=== PATIENT | male | born 1965 | race Caucasian/White ===

== ENCOUNTER 2020-05-07 02:24 | Inpatient (IN) ==
[2020-05-07] MEDS ORDERED: Naloxone 0.4 MG/ML INJ IVP PRN (04:30)
[2020-05-07] MEDS: Nitroglycerin 0.4 MG TAB.SUBL SL PRN ×3 (04:35→04:47)
[2020-05-07] MEDS ORDERED: *HR* Heparin 5,000 UNIT/ML VIAL IVP PRN ×2 (04:48)
[2020-05-07] MEDS ORDERED: *HR* Heparin 5,000 UNIT/ML VIAL IVP ONE (04:48)
[2020-05-07] MEDS ORDERED: Ondansetron 4 MG/2 ML VIAL IVP PRN (04:49)
[2020-05-07] MEDS: Morphine Sulfate 2 MG/ML SYRINGE IVP PRN ×6 (04:58→21:00)
[2020-05-07] MEDS: Heparin 25,000 UNIT/250 ML D5W 25,000 UNIT/250 ML IV.SOLN IVC SCH (05:08)
[2020-05-07 07:46] LABS: Hematocrit 43.9 % (37.5-50.1); Hemoglobin 14.2 g/dL (12.9-16.9); Mean Corpuscular HGB Conc 32.3 g/dL (31.6-35.5); Mean Corpuscular Hemoglobin 30.3 pg (28.0-33.3); Mean Corpuscular Volume 93.6 fL (83.0-100.0); Mean Platelet Volume 11.7 fL (9.4-12.4); Platelet Count 342 K/mcL (140-400); Red Blood Count 4.69 M/mcL (4.19-5.50); White Blood Count 10.6 K/mcL (4.3-11.1)
[2020-05-07 07:50] LABS: INR 1.1; Prothrombin Time 12.7 Seconds (9.4-12.1)
[2020-05-07 08:13] LABS: Alanine Aminotransferase 29 Units/L (7-52); Albumin 3.9 g/dL (3.5-5.7); Albumin/Globulin Ratio 1.2 (1.1-2.2); Alkaline Phosphatase 75 Units/L (34-104); Aspartate Amino Transferase 21 Units/L (13-39); BUN/Creatinine Ratio 15 (6-26); Bilirubin,Total 0.3 mg/dL (0.3-1.0); Blood Urea Nitrogen 21 mg/dL (6-20); Calcium 8.6 mg/dL (8.6-10.3); Carbon Dioxide 25 mEq/L (23-29); Chloride 103 mEq/L (98-107); Globulin 3.3 g/dL (2.4-3.5); Glucose 108 mg/dL (70-105); Osmolality,Calculated 290 (280-300); Phosphorous 4.5 mg/dL (2.7-4.5); Potassium 4.3 mEq/L (3.5-5.1); Sodium 138 mEq/L (136-145); Total Protein 7.2 g/dL (6.4-8.9); Troponin I < 0.03 ng/mL (< 0.04); eGFR For African Americans > 60 (> 60); eGFR For Non-African Americans 51 (> 60)
[2020-05-07] MEDS ORDERED: Perflutren Lipid Microsphere 1.3 ML in 0.9 % Sodium Chloride 8.7 ML IVP PRN (08:59)
[2020-05-07] MEDS ORDERED: Regadenoson 0.4 MG/5 ML SYRINGE IVP ONE (09:15)
[2020-05-07] MEDS: Aspirin 81 MG TAB.CHEW PO SCH (10:06)
[2020-05-07] MEDS ORDERED: *HR* OxyCODONE Immed Rel 5 MG TABLET PO PRN (10:33)
[2020-05-07] MEDS: *HR* HYDROcodone/Acet 5/325 mg TABLET PO PRN (13:20)
[2020-05-07] MEDS: carvediloL 6.25 MG TABLET PO SCH (16:51)
[2020-05-08] MEDS: Morphine Sulfate 2 MG/ML SYRINGE IVP PRN ×8 (00:24→23:38)
[2020-05-08 06:13] LABS: Basophils # 0.1 K/mcL (0.0-0.2); Basophils % 0.5 %; Eosinophils # 0.5 K/mcL (0.0-0.6); Eosinophils % 5.2 %; Hematocrit 43.9 % (37.5-50.1); Hemoglobin 13.8 g/dL (12.9-16.9); Immature Granulocytes % 0.4 % (0-4); Lymphocytes # 2.8 K/mcL (0.6-4.6); Lymphocytes % 29.4 %; Mean Corpuscular HGB Conc 31.4 g/dL (31.6-35.5); Mean Corpuscular Volume 95.4 fL (83.0-100.0); Mean Platelet Volume 11.3 fL (9.4-12.4); Monocytes # 0.8 K/mcL (0.0-1.3); Monocytes % 8.3 %; Neutrophils # 5.3 K/mcL (1.6-8.9); Nucleated Red Blood Cells 0.2 /100 WBC (0); Platelet Count 305 K/mcL (140-400); Segmented Neutrophils % 56.2 %; White Blood Count 9.4 K/mcL (4.3-11.1)
[2020-05-08 07:01] LABS: Calcium 8.4 mg/dL (8.6-10.3); Potassium 4.3 mEq/L (3.5-5.1)
[2020-05-08] MEDS: Isosorbide MONOnitrate (24 HR) 60 MG TAB.ER.24H PO SCH (07:29)
[2020-05-08] MEDS: Aspirin 81 MG TAB.CHEW PO SCH (07:30)
[2020-05-08] MEDS: carvediloL 6.25 MG TABLET PO SCH ×2 (07:30→16:54)
[2020-05-08] MEDS: lisinopriL 5 MG TABLET PO SCH (07:30)
[2020-05-08] MEDS: Heparin 25,000 UNIT/250 ML D5W 25,000 UNIT/250 ML IV.SOLN IVC SCH (07:32)
[2020-05-08] MEDS ORDERED: 0.9 % Sodium Chloride 1,000 ML ONE (11:09)
[2020-05-08] MEDS: *HR* Acetylcysteine 20% 600 MG/3 ML ORAL SYRINGE PO SCH ×2 (11:14→20:42)
[2020-05-08] MEDS ORDERED: 0.9 % Sodium Chloride 1,000 ML IVC SCH (11:15)
[2020-05-08] MEDS: *HR* Heparin 5,000 UNIT/ML VIAL SQ SCH (16:55)
[2020-05-09] MEDS: Morphine Sulfate 2 MG/ML SYRINGE IVP PRN ×5 (02:30→20:44)
[2020-05-09 04:37] LABS: BUN/Creatinine Ratio 13 (6-26); Blood Urea Nitrogen 18 mg/dL (6-20); Calcium 8.3 mg/dL (8.6-10.3); Carbon Dioxide 25 mEq/L (23-29); Chloride 104 mEq/L (98-107); Glucose 96 mg/dL (70-105); Osmolality,Calculated 284 (280-300); Potassium 4.3 mEq/L (3.5-5.1); Sodium 136 mEq/L (136-145); eGFR For African Americans > 60 (> 60); eGFR For Non-African Americans 53 (> 60)
[2020-05-09] MEDS: *HR* Heparin 5,000 UNIT/ML VIAL SQ SCH ×2 (05:20→16:20)
[2020-05-09] MEDS: Isosorbide MONOnitrate (24 HR) 60 MG TAB.ER.24H PO SCH (07:55)
[2020-05-09] MEDS: Aspirin 81 MG TAB.CHEW PO SCH (07:55)
[2020-05-09] MEDS: lisinopriL 5 MG TABLET PO SCH (07:56)
[2020-05-09] MEDS: carvediloL 6.25 MG TABLET PO SCH ×2 (07:59→16:30)
[2020-05-09] MEDS: *HR* Acetylcysteine 20% 600 MG/3 ML ORAL SYRINGE PO SCH ×2 (10:48→20:20)
[2020-05-09] MEDS ORDERED: 0.9 % Sodium Chloride 2,000 ML ONE (12:45)
[2020-05-09] MEDS ORDERED: Heparin 1,000 UNITS/500 mL 500 ML ONE (12:45)
[2020-05-09] MEDS ORDERED: ISOVUE-370 200 ML INFUS..BTL ONE (12:46)
[2020-05-09] MEDS ORDERED: Nitroglycerin 1,000 MCG/10 ML VIAL IV ONE (12:46)
[2020-05-09] MEDS ORDERED: *HR* Heparin 10,000 UNIT/10 ML VIAL ONE (12:46)
[2020-05-09] MEDS ORDERED: *HR* Midazolam HCl 2 MG/2 ML VIAL ONE (13:14)
[2020-05-09] MEDS ORDERED: *HR* FentaNYL (PF) 100 MCG/2 ML VIAL ONE (13:23)
[2020-05-09] MEDS ORDERED: Acetaminophen 325 MG TABLET PO PRN (13:54)
[2020-05-09] MEDS: *HR* HYDROcodone/Acet 5/325 mg TABLET PO PRN (14:23)
[2020-05-10] MEDS: Morphine Sulfate 2 MG/ML SYRINGE IVP PRN ×2 (00:27→06:40)
[2020-05-10 04:48] LABS: Basophils % 0.3 %; Eosinophils # 0.2 K/mcL (0.0-0.6); Eosinophils % 3.4 %; Hematocrit 41.7 % (37.5-50.1); Hemoglobin 12.8 g/dL (12.9-16.9); Immature Granulocytes % 0.4 % (0-4); Lymphocytes # 0.8 K/mcL (0.6-4.6); Lymphocytes % 11.8 %; Mean Corpuscular HGB Conc 30.7 g/dL (31.6-35.5); Mean Corpuscular Hemoglobin 29.3 pg (28.0-33.3); Mean Corpuscular Volume 95.4 fL (83.0-100.0); Mean Platelet Volume 11.3 fL (9.4-12.4); Monocytes # 0.7 K/mcL (0.0-1.3); Monocytes % 10.6 %; Platelet Count 282 K/mcL (140-400); Red Blood Count 4.37 M/mcL (4.19-5.50); Red Cell Distribution Width 13.5 % (11.5-14.5); Segmented Neutrophils % 73.5 %; White Blood Count 6.8 K/mcL (4.3-11.1)
[2020-05-10 05:03] LABS: BUN/Creatinine Ratio 12 (6-26); Blood Urea Nitrogen 16 mg/dL (6-20); Calcium 8.1 mg/dL (8.6-10.3); Carbon Dioxide 28 mEq/L (23-29); Chloride 102 mEq/L (98-107); Glucose 103 mg/dL (70-105); Osmolality,Calculated 285 (280-300); Potassium 4.1 mEq/L (3.5-5.1); Sodium 137 mEq/L (136-145); eGFR For African Americans > 60 (> 60); eGFR For Non-African Americans 56 (> 60)
[2020-05-10] MEDS: *HR* Heparin 5,000 UNIT/ML VIAL SQ SCH (06:04)
[2020-05-10] MEDS: Isosorbide MONOnitrate (24 HR) 60 MG TAB.ER.24H PO SCH (08:10)
[2020-05-10] MEDS: Aspirin 81 MG TAB.CHEW PO SCH (08:11)
[2020-05-10] MEDS: carvediloL 6.25 MG TABLET PO SCH (08:11)
[2020-05-10] MEDS: lisinopriL 5 MG TABLET PO SCH (08:12)
[2020-05-10] MEDS: *HR* Acetylcysteine 20% 600 MG/3 ML ORAL SYRINGE PO SCH (08:13)
[2020-05-10] MEDS: *HR* HYDROcodone/Acet 5/325 mg TABLET PO PRN (10:51)
[2020-05-10 11:54] VITALS: BP 146/76
== END 2020-05-10 12:17 | disposition home or self-care (01) | DRG 175 ==
LOC: 3BNU → SUATTDRO 02:24
PROVIDERS: ADMIT Internal Medicine; ATTEND Internal Medicine

== ENCOUNTER 2020-05-31 21:24 | Observation (INO) ==
[2020-06-01] MEDS ORDERED: Naloxone 0.4 MG/ML INJ IVP PRN (00:33)
[2020-06-01] MEDS ORDERED: *HR* Heparin 5,000 UNIT/ML VIAL IVP PRN ×2 (01:12)
[2020-06-01] MEDS ORDERED: Heparin 25,000UNIT/250ML 1/2NS 25,000 UNIT/250 ML IV.SOLN IVC SCH ×3 (01:15→03:00)
[2020-06-01] MEDS ORDERED: Morphine Sulfate 2 MG/ML SYRINGE IVP PRN ×2 (01:26→02:35)
[2020-06-01 01:47] LABS: Basophils % 0.3 %; Eosinophils # 0.3 K/mcL (0.0-0.6); Hematocrit 41.4 % (37.5-50.1); Hemoglobin 13.4 g/dL (12.9-16.9); Immature Granulocytes % 0.2 % (0-4); Lymphocytes # 2.8 K/mcL (0.6-4.6); Lymphocytes % 32.1 %; Mean Corpuscular HGB Conc 32.4 g/dL (31.6-35.5); Mean Corpuscular Hemoglobin 29.5 pg (28.0-33.3); Mean Corpuscular Volume 91.2 fL (83.0-100.0); Mean Platelet Volume 10.6 fL (9.4-12.4); Monocytes # 0.9 K/mcL (0.0-1.3); Monocytes % 9.9 %; Neutrophils # 4.7 K/mcL (1.6-8.9); Platelet Count 315 K/mcL (140-400); Red Blood Count 4.54 M/mcL (4.19-5.50); Red Cell Distribution Width 13.3 % (11.5-14.5); Segmented Neutrophils % 54.5 %; White Blood Count 8.6 K/mcL (4.3-11.1)
[2020-06-01 01:52] LABS: INR 1.4; Prothrombin Time 15.5 Seconds (9.4-12.1)
[2020-06-01 01:53] LABS: Heparin anti-factor XA UFH 0.97 IU/mL (0.30-0.70)
[2020-06-01 01:55] LABS: Activated Partial Thrombo Time 47.8 Seconds (26.0-36.0)
[2020-06-01 02:13] LABS: Alanine Aminotransferase 29 Units/L (7-52); Albumin 3.8 g/dL (3.5-5.7); Albumin/Globulin Ratio 1.2 (1.1-2.2); Alkaline Phosphatase 87 Units/L (34-104); Aspartate Amino Transferase 21 Units/L (13-39); BUN/Creatinine Ratio 12 (6-26); Bilirubin,Total 0.4 mg/dL (0.3-1.0); Blood Urea Nitrogen 13 mg/dL (6-20); Calcium 8.4 mg/dL (8.6-10.3); Carbon Dioxide 23 mEq/L (23-29); Chloride 107 mEq/L (98-107); Globulin 3.2 g/dL (2.4-3.5); Glucose 86 mg/dL (70-105); Magnesium 1.7 mg/dL (1.6-2.6); Osmolality,Calculated 287 (280-300); Phosphorous 2.8 mg/dL (2.7-4.5); Sodium 139 mEq/L (136-145); Troponin I < 0.03 ng/mL (< 0.04); eGFR For African Americans > 60 (> 60); eGFR For Non-African Americans > 60 (> 60)
[2020-06-01] MEDS ORDERED: Morphine Sulfate 2 MG/ML SYRINGE IVP ONE (02:35)
[2020-06-01] MEDS: Morphine Sulfate 2 MG/ML SYRINGE IVP PRN ×3 (05:14→21:34)
[2020-06-01] MEDS ORDERED: Ondansetron 4 MG/2 ML VIAL IVP PRN (06:28)
[2020-06-01] MEDS: Isosorbide MONOnitrate (24 HR) 60 MG TAB.ER.24H PO SCH (08:35)
[2020-06-01] MEDS: *HR* Amiodarone 200 MG TABLET PO SCH ×2 (08:35→21:27)
[2020-06-01] MEDS: Aspirin 81 MG TAB.CHEW PO SCH (08:35)
[2020-06-01] MEDS: carvediloL 6.25 MG TABLET PO SCH ×2 (08:35→15:51)
[2020-06-01] MEDS: lisinopriL 20 MG TABLET PO SCH (08:36)
[2020-06-01] MEDS ORDERED: lisinopriL 5 MG TABLET PO SCH (09:00)
[2020-06-01] MEDS: Ranolazine 500 MG TAB.ER.12H PO SCH ×2 (11:46→21:28)
[2020-06-01] MEDS ORDERED: Dextrose Gel 15 GM/37.5 ML TUBE PO PRN ×2 (12:12)
[2020-06-01] MEDS ORDERED: *HR* Dextrose 50 % in Water (Vial) 50 ML VIAL IVP PRN (12:12)
[2020-06-01] MEDS ORDERED: D5% in Water 1,000 ML IVC PRN (12:12)
[2020-06-01] MEDS: *HR* HYDROcodone/Acet 10/325 mg TABLET PO PRN (14:29)
[2020-06-01] MEDS: Insulin LISPRO 300 UNITS/3 ML VIAL SQ SCH (16:45)
[2020-06-01] MEDS ORDERED: Insulin LISPRO 300 UNITS/3 ML VIAL SQ SCH ×2 (18:00→21:00)
[2020-06-01] MEDS: Apixaban 5 MG TABLET PO SCH (21:28)
[2020-06-02] MEDS: *HR* HYDROcodone/Acet 10/325 mg TABLET PO PRN (02:45)
[2020-06-02] MEDS: Aspirin 81 MG TAB.CHEW PO SCH (09:51)
[2020-06-02] MEDS: *HR* Amiodarone 200 MG TABLET PO SCH (09:51)
[2020-06-02] MEDS: carvediloL 6.25 MG TABLET PO SCH (09:51)
[2020-06-02] MEDS: lisinopriL 20 MG TABLET PO SCH (09:51)
[2020-06-02] MEDS: Isosorbide MONOnitrate (24 HR) 60 MG TAB.ER.24H PO SCH (09:51)
[2020-06-02] MEDS: Apixaban 5 MG TABLET PO SCH (09:51)
[2020-06-02] MEDS: Insulin LISPRO 300 UNITS/3 ML VIAL SQ SCH (09:51)
[2020-06-02] MEDS: Ranolazine 500 MG TAB.ER.12H PO SCH (09:51)
[2020-06-02] MEDS ORDERED: Acetaminophen 325 MG TABLET PO PRN (10:09)
[2020-06-02] MEDS ORDERED: Ranolazine 500 MG TAB.ER.12H PO ONE (10:24)
[2020-06-02 11:15] VITALS: BP 126/67
== END 2020-06-02 12:43 | disposition home or self-care (01) ==
LOC: 2ANU → SUATTDRO 06-01 00:18
PROVIDERS: ADMIT Family Medicine; ATTEND Internal Medicine

== ENCOUNTER 2020-06-11 22:36 | Observation (INO) ==
[2020-06-12 02:43] LABS: Adenovirus Not Detected (Not Detect); Coronavirus 229E Not Detected (Not Detect); Coronavirus HKU1 Not Detected (Not Detect); Coronavirus NL63 Not Detected (Not Detect); Coronavirus OC43 Not Detected (Not Detect)
[2020-06-12 02:45] LABS: Bordetella Pertussis Not Detected (Not Detect); Chlamydophila pneumoniae Not Detected (Not Detect); Human Metapneumovirus Not Detected (Not Detect); Human Rhinovirus/Enterovirus Not Detected (Not Detect); Influenza A Subtype 2009 H1 Not Detected (Not Detect); Influenza B Not Detected (Not Detect); Mycoplasma pneumoniae Not Detected (Not Detect); Parainfluenza Virus 1 Not Detected (Not Detect); Parainfluenza Virus 2 Not Detected (Not Detect); Parainfluenza Virus 3 Not Detected (Not Detect); Parainfluenza Virus 4 Not Detected (Not Detect)
[2020-06-12] MEDS ORDERED: Morphine Sulfate 2 MG/ML SYRINGE IVP PRN ×2 (02:50→16:59)
[2020-06-12] MEDS ORDERED: Naloxone 0.4 MG/ML INJ IVP PRN (04:32)
[2020-06-12] MEDS ORDERED: *HR* HYDROcodone/Acet 5/325 mg TABLET PO PRN (04:38)
[2020-06-12] MEDS ORDERED: Acetaminophen 325 MG TABLET PO PRN (04:38)
[2020-06-12] MEDS ORDERED: *HR* Promethazine 25 MG/ML VIAL IVP PRN (04:41)
[2020-06-12 04:57] LABS: Hematocrit 41.2 % (37.5-50.1); Hemoglobin 13.4 g/dL (12.9-16.9); Mean Corpuscular HGB Conc 32.5 g/dL (31.6-35.5); Mean Corpuscular Hemoglobin 29.8 pg (28.0-33.3); Mean Corpuscular Volume 91.6 fL (83.0-100.0); Mean Platelet Volume 10.8 fL (9.4-12.4); Platelet Count 306 K/mcL (140-400); Red Cell Distribution Width 13.3 % (11.5-14.5); White Blood Count 10.4 K/mcL (4.3-11.1)
[2020-06-12 05:19] LABS: BUN/Creatinine Ratio 14 (6-26); Blood Urea Nitrogen 16 mg/dL (6-20); Calcium 8.9 mg/dL (8.6-10.3); Carbon Dioxide 24 mEq/L (23-29); Chloride 106 mEq/L (98-107); Chol/HDL Ratio 2.6 (0-4.9); Cholesterol 144 mg/dL (< 200); Glucose 88 mg/dL (70-105); HDL Cholesterol 55 mg/dL (40-59); LDL Cholesterol,Calculated 61 mg/dL (< 100); Osmolality,Calculated 289 (280-300); Potassium 3.6 mEq/L (3.5-5.1); Sodium 139 mEq/L (136-145); Triglycerides 141 mg/dL (< 150); Troponin I < 0.03 ng/mL (< 0.04); eGFR For African Americans > 60 (> 60); eGFR For Non-African Americans > 60 (> 60)
[2020-06-12 05:30] LABS: INR 1.4; Prothrombin Time 15.9 Seconds (9.4-12.1)
[2020-06-12 05:32] LABS: Activated Partial Thrombo Time 41.4 Seconds (26.0-36.0)
[2020-06-12] MEDS: *HR* OxyCODONE Immed Rel 5 MG TABLET PO PRN ×2 (06:15→16:26)
[2020-06-12] MEDS: carvediloL 25 MG TABLET PO SCH ×2 (08:22→16:26)
[2020-06-12] MEDS: Aspirin Enteric Coated 81 MG Tablet PO SCH (08:22)
[2020-06-12] MEDS ORDERED: *HR* Heparin 5,000 UNIT/ML VIAL IVP PRN ×2 (09:20)
[2020-06-12] MEDS ORDERED: *HR* Heparin 5,000 UNIT/ML VIAL IVP ONE (09:20)
[2020-06-12] MEDS: Ranolazine 500 MG TAB.ER.12H PO SCH ×2 (10:29→20:27)
[2020-06-12] MEDS: Heparin 25,000UNIT/250ML 1/2NS 25,000 UNIT/250 ML IV.SOLN IVC SCH (10:29)
[2020-06-12] MEDS: Morphine Sulfate 2 MG/ML SYRINGE IVP PRN ×2 (10:32→14:47)
[2020-06-12 11:35] LABS: Hematocrit 40.7 % (37.5-50.1); Hemoglobin 13.4 g/dL (12.9-16.9); Mean Corpuscular HGB Conc 32.9 g/dL (31.6-35.5); Mean Corpuscular Hemoglobin 30.6 pg (28.0-33.3); Mean Corpuscular Volume 92.9 fL (83.0-100.0); Platelet Count 297 K/mcL (140-400); Red Blood Count 4.38 M/mcL (4.19-5.50); Red Cell Distribution Width 13.3 % (11.5-14.5); White Blood Count 8.7 K/mcL (4.3-11.1)
[2020-06-12] MEDS: Isosorbide MONOnitrate (24 HR) 60 MG TAB.ER.24H PO SCH (11:50)
[2020-06-12] MEDS: *HR* HYDROcodone/Acet 5/325 mg TABLET PO SCH ×3 (12:01→23:54)
[2020-06-12 12:03] LABS: INR 1.5; Prothrombin Time 16.5 Seconds (9.4-12.1)
[2020-06-12] MEDS: amLODIPine 5 MG TABLET PO SCH (12:03)
[2020-06-12] MEDS: *HR* Amiodarone 200 MG TABLET PO SCH ×2 (12:03→20:27)
[2020-06-12 12:12] LABS: Heparin anti-factor XA UFH > 2.00 IU/mL (0.30-0.70)
[2020-06-12] MEDS ORDERED: NON-FORMULARY MEDICATION 1 EACH EACH (Ranolazine [Ranexa] 1,000 MG) PO SCH (21:00)
[2020-06-12] MEDS ORDERED: Acetaminophen IV 1,000 MG/100 ML INFUS..BTL IVPB ONE (21:51)
[2020-06-13] MEDS ORDERED: Acetaminophen IV 1,000 MG/100 ML INFUS..BTL IVPB ONE (02:50)
[2020-06-13 03:35] LABS: Hematocrit 39.9 % (37.5-50.1); Hemoglobin 12.8 g/dL (12.9-16.9); Mean Corpuscular HGB Conc 32.1 g/dL (31.6-35.5); Mean Corpuscular Hemoglobin 29.7 pg (28.0-33.3); Mean Corpuscular Volume 92.6 fL (83.0-100.0); Mean Platelet Volume 10.9 fL (9.4-12.4); Platelet Count 308 K/mcL (140-400); Red Blood Count 4.31 M/mcL (4.19-5.50); Red Cell Distribution Width 13.4 % (11.5-14.5); White Blood Count 8.3 K/mcL (4.3-11.1)
[2020-06-13 03:54] LABS: BUN/Creatinine Ratio 13 (6-26); Blood Urea Nitrogen 19 mg/dL (6-20); Calcium 8.5 mg/dL (8.6-10.3); Carbon Dioxide 25 mEq/L (23-29); Chloride 102 mEq/L (98-107); Glucose 112 mg/dL (70-105); Osmolality,Calculated 283 (280-300); Potassium 3.8 mEq/L (3.5-5.1); Sodium 135 mEq/L (136-145); eGFR For African Americans > 60 (> 60); eGFR For Non-African Americans 51 (> 60)
[2020-06-13] MEDS: *HR* HYDROcodone/Acet 5/325 mg TABLET PO SCH ×4 (05:25→23:28)
[2020-06-13] MEDS ORDERED: Ringers Solution, Lactated 1,000 ML IVC ONE ×2 (07:24)
[2020-06-13] MEDS: Aspirin Enteric Coated 81 MG Tablet PO SCH (08:39)
[2020-06-13] MEDS: *HR* OxyCODONE Immed Rel 5 MG TABLET PO PRN ×2 (08:39→19:23)
[2020-06-13] MEDS: Ranolazine 500 MG TAB.ER.12H PO SCH ×2 (08:39→20:44)
[2020-06-13] MEDS: *HR* Amiodarone 200 MG TABLET PO SCH ×2 (08:39→20:44)
[2020-06-13] MEDS: amLODIPine 5 MG TABLET PO SCH (08:40)
[2020-06-13] MEDS: Isosorbide MONOnitrate (24 HR) 60 MG TAB.ER.24H PO SCH (08:40)
[2020-06-13] MEDS: carvediloL 25 MG TABLET PO SCH ×3 (08:40→18:19)
[2020-06-13] MEDS: Heparin 25,000UNIT/250ML 1/2NS 25,000 UNIT/250 ML IV.SOLN IVC SCH ×2 (08:46→21:41)
[2020-06-13 13:10] LABS: BUN/Creatinine Ratio 12 (6-26); Blood Urea Nitrogen 17 mg/dL (6-20); Carbon Dioxide 28 mEq/L (23-29); Chloride 103 mEq/L (98-107); Glucose 86 mg/dL (70-105); Osmolality,Calculated 283 (280-300); Potassium 4.2 mEq/L (3.5-5.1); Sodium 136 mEq/L (136-145); eGFR For African Americans > 60 (> 60); eGFR For Non-African Americans 54 (> 60)
[2020-06-13] MEDS ORDERED: Heparin 1,000 UNITS/500 mL 500 ML ONE (13:36)
[2020-06-13] MEDS ORDERED: *HR* Heparin 10,000 UNIT/10 ML VIAL ONE (13:36)
[2020-06-13] MEDS ORDERED: 0.9 % Sodium Chloride 1,000 ML ONE (13:36)
[2020-06-13] MEDS ORDERED: Nitroglycerin 1,000 MCG/10 ML VIAL IV ONE (13:37)
[2020-06-13] MEDS ORDERED: ISOVUE-370 200 ML INFUS..BTL ONE (13:37)
[2020-06-13] MEDS ORDERED: *HR* FentaNYL (PF) 100 MCG/2 ML VIAL ONE (14:08)
[2020-06-13] MEDS ORDERED: *HR* Midazolam HCl 2 MG/2 ML VIAL ONE (14:08)
[2020-06-13] MEDS: 0.9 % Sodium Chloride 1,000 ML IVC SCH (17:24)
[2020-06-13] MEDS ORDERED: *HR* Atropine Sulfate 1 MG/10 ML SYRINGE ONE (18:44)
[2020-06-13] MEDS: Ringers Solution, Lactated 1,000 ML IVC SCH (20:44)
[2020-06-14] MEDS: *HR* OxyCODONE Immed Rel 5 MG TABLET PO PRN ×2 (02:07→08:26)
[2020-06-14] MEDS: 0.9 % Sodium Chloride 1,000 ML IVC SCH (02:11)
[2020-06-14 02:25] LABS: Hematocrit 39.8 % (37.5-50.1); Hemoglobin 12.8 g/dL (12.9-16.9)
[2020-06-14 02:43] LABS: BUN/Creatinine Ratio 11 (6-26); Blood Urea Nitrogen 15 mg/dL (6-20); Calcium 8.8 mg/dL (8.6-10.3); Carbon Dioxide 24 mEq/L (23-29); Chloride 102 mEq/L (98-107); Glucose 107 mg/dL (70-105); Osmolality,Calculated 281 (280-300); Potassium 3.9 mEq/L (3.5-5.1); Sodium 135 mEq/L (136-145); eGFR For African Americans > 60 (> 60); eGFR For Non-African Americans 55 (> 60)
[2020-06-14 02:44] LABS: BUN/Creatinine Ratio 11 (6-26); Blood Urea Nitrogen 15 mg/dL (6-20); eGFR For African Americans > 60 (> 60); eGFR For Non-African Americans 54 (> 60)
[2020-06-14] MEDS: *HR* HYDROcodone/Acet 5/325 mg TABLET PO SCH (05:17)
[2020-06-14] MEDS: Ringers Solution, Lactated 1,000 ML IVC SCH (05:19)
[2020-06-14 07:16] VITALS: BP 144/93
[2020-06-14] MEDS: Ranolazine 500 MG TAB.ER.12H PO SCH (08:25)
[2020-06-14] MEDS: *HR* Amiodarone 200 MG TABLET PO SCH (08:26)
[2020-06-14] MEDS: amLODIPine 5 MG TABLET PO SCH (08:26)
[2020-06-14] MEDS: Aspirin Enteric Coated 81 MG Tablet PO SCH (08:26)
[2020-06-14] MEDS: Isosorbide MONOnitrate (24 HR) 60 MG TAB.ER.24H PO SCH (08:26)
[2020-06-14] MEDS: carvediloL 25 MG TABLET PO SCH (08:26)
[2020-06-14 08:51] LABS: Respiratory Syncytial Virus Not Detected (Not Detect)
[2020-06-14] MEDS ORDERED: Apixaban 5 MG TABLET PO SCH (09:15)
== END 2020-06-14 12:45 | disposition home or self-care (01) ==
LOC: CDU → 2ANU 06-12 03:25 → 2NNU 06-13 17:01
PROVIDERS: ADMIT Internal Medicine; ATTEND Internal Medicine

== ENCOUNTER 2020-06-19 16:28 | Observation (INO) ==
[2020-06-19] MEDS ORDERED: Naloxone 0.4 MG/ML INJ IVP PRN (18:35)
[2020-06-19] MEDS: Pantoprazole 40 MG VIAL IVP SCH (18:59)
[2020-06-19] MEDS ORDERED: Morphine Sulfate 2 MG/ML SYRINGE IVP ONE (19:02)
[2020-06-19 19:12] LABS: Hematocrit 41.2 % (37.5-50.1); Hemoglobin 13.5 g/dL (12.9-16.9); Mean Corpuscular HGB Conc 32.8 g/dL (31.6-35.5); Mean Corpuscular Hemoglobin 29.6 pg (28.0-33.3); Mean Corpuscular Volume 90.4 fL (83.0-100.0); Mean Platelet Volume 10.6 fL (9.4-12.4); Platelet Count 329 K/mcL (140-400); Red Blood Count 4.56 M/mcL (4.19-5.50); Red Cell Distribution Width 13.6 % (11.5-14.5); White Blood Count 9.3 K/mcL (4.3-11.1)
[2020-06-19] MEDS ORDERED: *HR* HYDROcodone/Acet 10/325 mg TABLET PO PRN (21:01)
[2020-06-19] MEDS ORDERED: Isovue-370 500 ML BOTTLE IVP ONE (21:04)
[2020-06-19] MEDS: *HR* Amiodarone 200 MG TABLET PO SCH (21:09)
[2020-06-19 21:45] LABS: INR 1.6; Prothrombin Time 18.2 Seconds (9.4-12.1)
[2020-06-19 22:01] LABS: Alanine Aminotransferase 28 Units/L (7-52); Albumin/Globulin Ratio 1.3 (1.1-2.2); Alkaline Phosphatase 84 Units/L (34-104); Aspartate Amino Transferase 19 Units/L (13-39); BUN/Creatinine Ratio 13 (6-26); Bilirubin,Direct 0.1 mg/dL (0.0-0.2); Bilirubin,Indirect 0.4 mg/dL (0.0-1.0); Bilirubin,Total 0.5 mg/dL (0.3-1.0); Blood Urea Nitrogen 17 mg/dL (6-20); Carbon Dioxide 25 mEq/L (23-29); Chloride 107 mEq/L (98-107); Glucose 78 mg/dL (70-105); Osmolality,Calculated 290 (280-300); Potassium 3.8 mEq/L (3.5-5.1); Sodium 140 mEq/L (136-145); eGFR For African Americans > 60 (> 60); eGFR For Non-African Americans 58 (> 60)
[2020-06-20 01:55] LABS: Basophils % 0.4 %; Eosinophils # 0.1 K/mcL (0.0-0.6); Eosinophils % 1.4 %; Hematocrit 39.8 % (37.5-50.1); Immature Granulocytes % 0.2 % (0-4); Lymphocytes % 31.3 %; Mean Corpuscular HGB Conc 32.7 g/dL (31.6-35.5); Mean Corpuscular Hemoglobin 29.5 pg (28.0-33.3); Mean Corpuscular Volume 90.5 fL (83.0-100.0); Mean Platelet Volume 10.6 fL (9.4-12.4); Monocytes # 0.8 K/mcL (0.0-1.3); Monocytes % 7.8 %; Neutrophils # 5.6 K/mcL (1.6-8.9); Platelet Count 307 K/mcL (140-400); Red Cell Distribution Width 13.6 % (11.5-14.5); Segmented Neutrophils % 58.9 %; White Blood Count 9.6 K/mcL (4.3-11.1)
[2020-06-20 02:13] LABS: BUN/Creatinine Ratio 12 (6-26); Blood Urea Nitrogen 16 mg/dL (6-20); Calcium 8.7 mg/dL (8.6-10.3); Carbon Dioxide 25 mEq/L (23-29); Chloride 105 mEq/L (98-107); Glucose 77 mg/dL (70-105); Osmolality,Calculated 288 (280-300); Potassium 3.6 mEq/L (3.5-5.1); Sodium 139 mEq/L (136-145); eGFR For African Americans > 60 (> 60); eGFR For Non-African Americans 56 (> 60)
[2020-06-20] MEDS ORDERED: Morphine Sulfate 2 MG/ML SYRINGE IVP ONE (02:21)
[2020-06-20 02:39] LABS: Lipase 28 Units/L (11-82)
[2020-06-20] MEDS: Pantoprazole 40 MG VIAL IVP SCH ×2 (05:41→16:37)
[2020-06-20] MEDS: carvediloL 6.25 MG TABLET PO SCH ×2 (09:16→15:26)
[2020-06-20] MEDS: *HR* Amiodarone 200 MG TABLET PO SCH ×2 (09:16→20:25)
[2020-06-20] MEDS: Aspirin Enteric Coated 81 MG Tablet PO SCH (09:20)
[2020-06-20] MEDS: Isosorbide MONOnitrate (24 HR) 60 MG TAB.ER.24H PO SCH (09:20)
[2020-06-20] MEDS: Ranolazine 500 MG TAB.ER.12H PO SCH ×2 (09:55→22:09)
[2020-06-20] MEDS: amLODIPine 5 MG TABLET PO SCH (09:55)
[2020-06-20] MEDS: lisinopriL 20 MG TABLET PO SCH (09:55)
[2020-06-21 05:37] LABS: Basophils % 0.3 %; Eosinophils # 0.2 K/mcL (0.0-0.6); Eosinophils % 2.2 %; Hematocrit 39.5 % (37.5-50.1); Hemoglobin 13.1 g/dL (12.9-16.9); Immature Granulocytes % 0.2 % (0-4); Lymphocytes # 2.3 K/mcL (0.6-4.6); Lymphocytes % 26.1 %; Mean Corpuscular HGB Conc 33.2 g/dL (31.6-35.5); Mean Corpuscular Hemoglobin 30.1 pg (28.0-33.3); Mean Corpuscular Volume 90.8 fL (83.0-100.0); Mean Platelet Volume 10.5 fL (9.4-12.4); Monocytes # 0.7 K/mcL (0.0-1.3); Monocytes % 7.8 %; Neutrophils # 5.7 K/mcL (1.6-8.9); Platelet Count 285 K/mcL (140-400); Red Blood Count 4.35 M/mcL (4.19-5.50); Red Cell Distribution Width 13.2 % (11.5-14.5); Segmented Neutrophils % 63.4 %; White Blood Count 8.9 K/mcL (4.3-11.1)
[2020-06-21] MEDS: Pantoprazole 40 MG VIAL IVP SCH ×2 (06:13→17:51)
[2020-06-21 06:14] LABS: BUN/Creatinine Ratio 13 (6-26); Blood Urea Nitrogen 17 mg/dL (6-20); Calcium 8.8 mg/dL (8.6-10.3); Carbon Dioxide 25 mEq/L (23-29); Chloride 99 mEq/L (98-107); Glucose 70 mg/dL (70-105); Magnesium 1.7 mg/dL (1.6-2.6); Osmolality,Calculated 280 (280-300); Phosphorous 3.9 mg/dL (2.7-4.5); Potassium 3.7 mEq/L (3.5-5.1); Sodium 135 mEq/L (136-145); eGFR For African Americans > 60 (> 60); eGFR For Non-African Americans 59 (> 60)
[2020-06-21] MEDS: *HR* Amiodarone 200 MG TABLET PO SCH ×2 (09:28→21:35)
[2020-06-21] MEDS: Ranolazine 500 MG TAB.ER.12H PO SCH ×2 (09:28→21:35)
[2020-06-21] MEDS: amLODIPine 5 MG TABLET PO SCH (09:28)
[2020-06-21] MEDS: Aspirin Enteric Coated 81 MG Tablet PO SCH (09:28)
[2020-06-21] MEDS: Isosorbide MONOnitrate (24 HR) 60 MG TAB.ER.24H PO SCH (09:28)
[2020-06-21] MEDS: carvediloL 6.25 MG TABLET PO SCH ×2 (09:28→16:24)
[2020-06-21] MEDS: lisinopriL 20 MG TABLET PO SCH (09:28)
[2020-06-21] MEDS: Acetaminophen 325 MG TABLET PO PRN (14:42)
[2020-06-22] MEDS: Pantoprazole 40 MG VIAL IVP SCH (05:46)
[2020-06-22] MEDS: Acetaminophen 325 MG TABLET PO PRN (06:11)
[2020-06-22 06:51] LABS: Basophils % 0.2 %; Eosinophils # 0.1 K/mcL (0.0-0.6); Eosinophils % 1.4 %; Hematocrit 40.1 % (37.5-50.1); Hemoglobin 13.2 g/dL (12.9-16.9); Immature Granulocytes % 0.3 % (0-4); Lymphocytes % 21.2 %; Mean Corpuscular HGB Conc 32.9 g/dL (31.6-35.5); Mean Corpuscular Hemoglobin 30.1 pg (28.0-33.3); Mean Corpuscular Volume 91.6 fL (83.0-100.0); Mean Platelet Volume 10.3 fL (9.4-12.4); Monocytes # 0.9 K/mcL (0.0-1.3); Monocytes % 8.8 %; Neutrophils # 6.6 K/mcL (1.6-8.9); Platelet Count 284 K/mcL (140-400); Red Blood Count 4.38 M/mcL (4.19-5.50); Red Cell Distribution Width 13.4 % (11.5-14.5); Segmented Neutrophils % 68.1 %; White Blood Count 9.6 K/mcL (4.3-11.1)
[2020-06-22 07:34] VITALS: BP 119/74
[2020-06-22] MEDS: Ranolazine 500 MG TAB.ER.12H PO SCH (07:54)
[2020-06-22] MEDS: amLODIPine 5 MG TABLET PO SCH (07:54)
[2020-06-22] MEDS: Aspirin Enteric Coated 81 MG Tablet PO SCH (07:54)
[2020-06-22] MEDS: Isosorbide MONOnitrate (24 HR) 60 MG TAB.ER.24H PO SCH (07:54)
[2020-06-22] MEDS: lisinopriL 20 MG TABLET PO SCH (07:54)
[2020-06-22] MEDS: *HR* Amiodarone 200 MG TABLET PO SCH (07:54)
[2020-06-22] MEDS: carvediloL 6.25 MG TABLET PO SCH (07:54)
== END 2020-06-22 12:10 | disposition home or self-care (01) ==
LOC: 3BNU → SUATTDRO 18:15
PROVIDERS: ADMIT Internal Medicine; ATTEND Internal Medicine

== ENCOUNTER 2020-10-31 02:49 | Observation (INO) ==
[2020-10-31] MEDS ORDERED: Morphine Sulfate 2 MG/ML SYRINGE IVP ONE (05:26)
[2020-10-31] MEDS ORDERED: Naloxone 0.4 MG/ML INJ IVP PRN (05:33)
[2020-10-31 05:55] LABS: Basophils % 0.3 %; Eosinophils % 0.1 %; Hematocrit 44.3 % (37.5-50.1); Hemoglobin 13.8 g/dL (12.9-16.9); Immature Granulocytes % 0.4 % (0-4); Lymphocytes # 1.2 K/mcL (0.6-4.6); Lymphocytes % 8.6 %; Mean Corpuscular HGB Conc 31.2 g/dL (31.6-35.5); Mean Corpuscular Hemoglobin 29.1 pg (28.0-33.3); Mean Corpuscular Volume 93.3 fL (83.0-100.0); Mean Platelet Volume 10.5 fL (9.4-12.4); Monocytes # 0.6 K/mcL (0.0-1.3); Platelet Count 397 K/mcL (140-400); Red Blood Count 4.75 M/mcL (4.19-5.50); Red Cell Distribution Width 13.5 % (11.5-14.5); Segmented Neutrophils % 86.6 %; White Blood Count 13.9 K/mcL (4.3-11.1)
[2020-10-31 06:15] LABS: Potassium 4.8 mEq/L (3.5-5.1)
[2020-10-31] MEDS ORDERED: carvediloL 6.25 MG TABLET PO SCH (08:00)
[2020-10-31] MEDS: Isosorbide MONOnitrate (24 HR) 60 MG TAB.ER.24H PO SCH (09:08)
[2020-10-31] MEDS: amLODIPine 5 MG TABLET PO SCH (09:08)
[2020-10-31] MEDS: *HR* Amiodarone 200 MG TABLET PO SCH (09:08)
[2020-10-31] MEDS: Apixaban 5 MG TABLET PO SCH ×2 (09:08→20:21)
[2020-10-31] MEDS: Isosorbide MONOnitrate (24 HR) 30 MG TAB.ER.24H PO SCH (09:08)
[2020-10-31] MEDS: lisinopriL 20 MG TABLET PO SCH ×2 (09:09→20:21)
[2020-10-31] MEDS: Ranolazine 500 MG TAB.ER.12H PO SCH ×2 (09:09→20:21)
[2020-10-31] MEDS: carvediloL 6.25 MG TABLET PO SCH ×2 (09:16→16:22)
[2020-10-31] MEDS: *HR* HYDROcodone/Acet 10/325 mg TABLET PO PRN ×2 (09:41→18:20)
[2020-10-31] MEDS ORDERED: Isovue-370 500 ML BOTTLE IVP ONE (11:16)
[2020-10-31] MEDS ORDERED: cloNIDine HCL 0.1 MG TABLET PO ONE (12:44)
[2020-10-31] MEDS: *HR* OxyCODONE/APAP 5/325 TABLET PO PRN ×2 (13:11→20:21)
[2020-10-31] MEDS: Ondansetron 4 MG/2 ML VIAL IVP PRN ×2 (13:11→23:19)
[2020-10-31 19:22] LABS: Amphetamine Screen,Urine Negative ng/mL (Cutoff=1000); Barbiturate Screen,Urine Negative ng/mL (Cutoff=200); Benzodiazepines Screen,Urine Negative ng/mL (Cutoff=200); Cannabinoid Screen,Urine Negative ng/mL (Cutoff = 50); Cocaine Screen,Urine Negative ng/mL (Cutoff= 300); Opiate Screen,Urine Positive ng/mL (Cutoff=300); Phencyclidine Screen,Urine Negative ng/mL (Cutoff=25)
[2020-10-31 19:26] LABS: Bilirubin,Urine Negative (Negative); Blood,Urine Negative (Negative); Clarity,Urine Clear (Clear); Color,Urine Light-Yellow (Yellow); Glucose,Urine (UA) Normal (Normal); Ketones,Urine Negative (Negative); Leukocyte Esterase,Urine Negative (Negative); Mucus,Urine Few per lpf (None-Few); Nitrite,Urine Negative (Negative); Protein,Urine 30 mg/dL (Neg-Trace); RBC,Urine 0-3 per hpf (0-3); Specific Gravity,Urine > 1.030 (1.010-1.025); Squamous Epithelial Cell,Urine Few per hpf (None-Few); Urobilinogen,Urine Normal (Normal); WBC,Urine 0-3 per hpf (0-3)
[2020-11-01] MEDS: *HR* OxyCODONE/APAP 5/325 TABLET PO PRN ×4 (03:07→23:34)
[2020-11-01 06:27] LABS: Hematocrit 41.1 % (37.5-50.1); Hemoglobin 13.2 g/dL (12.9-16.9); Mean Corpuscular HGB Conc 32.1 g/dL (31.6-35.5); Mean Corpuscular Hemoglobin 29.9 pg (28.0-33.3); Mean Platelet Volume 10.6 fL (9.4-12.4); Platelet Count 381 K/mcL (140-400); Red Blood Count 4.42 M/mcL (4.19-5.50); Red Cell Distribution Width 13.9 % (11.5-14.5); White Blood Count 11.1 K/mcL (4.3-11.1)
[2020-11-01 06:52] LABS: Potassium 3.9 mEq/L (3.5-5.1)
[2020-11-01] MEDS: *HR* Amiodarone 200 MG TABLET PO SCH (08:53)
[2020-11-01] MEDS: Apixaban 5 MG TABLET PO SCH ×2 (08:53→19:50)
[2020-11-01] MEDS: carvediloL 6.25 MG TABLET PO SCH ×2 (08:53→17:16)
[2020-11-01] MEDS: lisinopriL 20 MG TABLET PO SCH ×2 (08:54→19:50)
[2020-11-01] MEDS: amLODIPine 5 MG TABLET PO SCH (08:54)
[2020-11-01] MEDS: Isosorbide MONOnitrate (24 HR) 30 MG TAB.ER.24H PO SCH (08:54)
[2020-11-01] MEDS: Isosorbide MONOnitrate (24 HR) 60 MG TAB.ER.24H PO SCH (08:54)
[2020-11-01] MEDS: Ranolazine 500 MG TAB.ER.12H PO SCH ×2 (08:54→19:50)
[2020-11-01] MEDS: *HR* HYDROcodone/Acet 10/325 mg TABLET PO PRN ×2 (08:55→21:27)
[2020-11-02] MEDS: *HR* OxyCODONE/APAP 5/325 TABLET PO PRN ×3 (06:08→18:34)
[2020-11-02] MEDS: *HR* HYDROcodone/Acet 10/325 mg TABLET PO PRN ×2 (08:08→20:22)
[2020-11-02] MEDS: amLODIPine 5 MG TABLET PO SCH (08:08)
[2020-11-02] MEDS: Ranolazine 500 MG TAB.ER.12H PO SCH ×2 (08:09→20:22)
[2020-11-02] MEDS: Isosorbide MONOnitrate (24 HR) 30 MG TAB.ER.24H PO SCH (08:09)
[2020-11-02] MEDS: carvediloL 6.25 MG TABLET PO SCH ×2 (08:09→16:00)
[2020-11-02] MEDS: *HR* Amiodarone 200 MG TABLET PO SCH (08:10)
[2020-11-02] MEDS: Apixaban 5 MG TABLET PO SCH ×2 (08:10→20:22)
[2020-11-02] MEDS: Aspirin Enteric Coated 81 MG Tablet PO SCH (08:10)
[2020-11-02] MEDS: lisinopriL 20 MG TABLET PO SCH ×2 (08:10→20:22)
[2020-11-02] MEDS: Ondansetron 4 MG/2 ML VIAL IVP PRN (09:46)
[2020-11-02 10:09] LABS: Calcium 9.1 mg/dL (8.6-10.3); Potassium 4.2 mEq/L (3.5-5.1)
[2020-11-02 10:48] LABS: Adenovirus Not Detected (Not Detect); Bordetella Pertussis Not Detected (Not Detect); Chlamydophila pneumoniae Not Detected (Not Detect); Coronavirus 229E Not Detected (Not Detect); Coronavirus HKU1 Not Detected (Not Detect); Coronavirus NL63 Not Detected (Not Detect); Coronavirus OC43 Not Detected (Not Detect); Human Metapneumovirus Not Detected (Not Detect); Human Rhinovirus/Enterovirus Not Detected (Not Detect); Influenza A Subtype 2009 H1 Not Detected (Not Detect); Influenza B Not Detected (Not Detect); Mycoplasma pneumoniae Not Detected (Not Detect); Parainfluenza Virus 1 Not Detected (Not Detect); Parainfluenza Virus 2 Not Detected (Not Detect); Parainfluenza Virus 3 Not Detected (Not Detect); Parainfluenza Virus 4 Not Detected (Not Detect); Respiratory Syncytial Virus Not Detected (Not Detect); SARS-CoV-2 Not Detected (Not Detect)
[2020-11-02 13:01] LABS: Bilirubin,Urine Negative (Negative); Blood,Urine Negative (Negative); Clarity,Urine Clear (Clear); Color,Urine Yellow (Yellow); Glucose,Urine (UA) Normal (Normal); Ketones,Urine Negative (Negative); Leukocyte Esterase,Urine Negative (Negative); Nitrite,Urine Negative (Negative); Protein,Urine Trace mg/dL (Neg-Trace); Specific Gravity,Urine 1.027 (1.010-1.025); Urobilinogen,Urine Normal (Normal)
[2020-11-02] MEDS ORDERED: Melatonin 3 MG TABLET PO PRN (23:02)
[2020-11-03] MEDS: *HR* OxyCODONE/APAP 5/325 TABLET PO PRN ×4 (00:35→23:08)
[2020-11-03 05:46] LABS: Basophils % 0.3 %; Eosinophils # 0.2 K/mcL (0.0-0.6); Eosinophils % 2.3 %; Hematocrit 43.5 % (37.5-50.1); Hemoglobin 13.4 g/dL (12.9-16.9); Immature Granulocytes % 0.3 % (0-4); Lymphocytes # 2.3 K/mcL (0.6-4.6); Lymphocytes % 24.2 %; Mean Corpuscular HGB Conc 30.8 g/dL (31.6-35.5); Mean Corpuscular Hemoglobin 28.8 pg (28.0-33.3); Mean Corpuscular Volume 93.3 fL (83.0-100.0); Mean Platelet Volume 10.5 fL (9.4-12.4); Monocytes # 0.9 K/mcL (0.0-1.3); Platelet Count 346 K/mcL (140-400); Red Blood Count 4.66 M/mcL (4.19-5.50); Red Cell Distribution Width 13.8 % (11.5-14.5); Segmented Neutrophils % 63.9 %; White Blood Count 9.4 K/mcL (4.3-11.1)
[2020-11-03] MEDS: carvediloL 6.25 MG TABLET PO SCH ×2 (06:36→16:10)
[2020-11-03 06:58] LABS: Calcium 9.1 mg/dL (8.6-10.3)
[2020-11-03] MEDS: lisinopriL 20 MG TABLET PO SCH ×2 (08:47→20:17)
[2020-11-03] MEDS: Aspirin Enteric Coated 81 MG Tablet PO SCH (08:47)
[2020-11-03] MEDS: Ranolazine 500 MG TAB.ER.12H PO SCH ×2 (08:47→20:14)
[2020-11-03] MEDS: Apixaban 5 MG TABLET PO SCH ×2 (08:48→20:14)
[2020-11-03] MEDS: amLODIPine 5 MG TABLET PO SCH (08:48)
[2020-11-03] MEDS: Isosorbide MONOnitrate (24 HR) 30 MG TAB.ER.24H PO SCH (08:48)
[2020-11-03] MEDS: *HR* Amiodarone 200 MG TABLET PO SCH (08:51)
[2020-11-03] MEDS: *HR* HYDROcodone/Acet 10/325 mg TABLET PO PRN (08:51)
[2020-11-04 01:47] LABS: Basophils % 0.4 %; Eosinophils # 0.2 K/mcL (0.0-0.6); Eosinophils % 1.8 %; Hematocrit 41.5 % (37.5-50.1); Hemoglobin 13.3 g/dL (12.9-16.9); Immature Granulocytes % 0.3 % (0-4); Lymphocytes # 1.6 K/mcL (0.6-4.6); Lymphocytes % 14.5 %; Mean Corpuscular Hemoglobin 30.2 pg (28.0-33.3); Mean Corpuscular Volume 94.1 fL (83.0-100.0); Mean Platelet Volume 10.9 fL (9.4-12.4); Monocytes # 0.8 K/mcL (0.0-1.3); Monocytes % 6.9 %; Neutrophils # 8.3 K/mcL (1.6-8.9); Platelet Count 361 K/mcL (140-400); Red Blood Count 4.41 M/mcL (4.19-5.50); Red Cell Distribution Width 13.6 % (11.5-14.5); Segmented Neutrophils % 76.1 %; White Blood Count 10.8 K/mcL (4.3-11.1)
[2020-11-04 02:03] LABS: Calcium 9.1 mg/dL (8.6-10.3); Potassium 4.3 mEq/L (3.5-5.1)
[2020-11-04] MEDS: *HR* HYDROcodone/Acet 10/325 mg TABLET PO PRN ×2 (03:39→17:05)
[2020-11-04] MEDS: *HR* OxyCODONE/APAP 5/325 TABLET PO PRN ×3 (07:43→20:15)
[2020-11-04] MEDS: Ranolazine 500 MG TAB.ER.12H PO SCH ×2 (10:48→19:26)
[2020-11-04] MEDS: Aspirin Enteric Coated 81 MG Tablet PO SCH (10:48)
[2020-11-04] MEDS: *HR* Amiodarone 200 MG TABLET PO SCH (10:48)
[2020-11-04] MEDS: Apixaban 5 MG TABLET PO SCH ×2 (10:48→19:27)
[2020-11-04] MEDS: lisinopriL 20 MG TABLET PO SCH ×2 (10:48→19:27)
[2020-11-04] MEDS: Isosorbide MONOnitrate (24 HR) 30 MG TAB.ER.24H PO SCH (10:49)
[2020-11-04] MEDS: carvediloL 6.25 MG TABLET PO SCH ×2 (10:49→16:18)
[2020-11-04] MEDS: amLODIPine 5 MG TABLET PO SCH (10:49)
[2020-11-04 20:04] VITALS: BP 112/76
== END 2020-11-04 20:51 | disposition home or self-care (01) ==
LOC: ICNU → SUATTDRO 04:49 → 3BNU 11-02 14:37
PROVIDERS: ADMIT Student in an Organized Health Care Education/Training Program; ATTEND Internal Medicine

== ENCOUNTER 2020-11-05 13:22 | Inpatient (IN) ==
[~2020-11-05 13:22] MED LIST: Adenosine 90 MG/30 ML MLS IV ONE
[2020-11-05] MEDS ORDERED: 0.9 % Sodium Chloride 1,000 ML ONE ×2 (13:30→13:40)
[2020-11-05] MEDS ORDERED: 0.9 % Sodium Chloride 1,000 ML IVC ONE (13:33)
[2020-11-05] MEDS ORDERED: Nitroglycerin 1,000 MCG/10 ML VIAL IV ONE (13:40)
[2020-11-05] MEDS ORDERED: Ondansetron 4 MG/2 ML VIAL ONE (13:40)
[2020-11-05] MEDS ORDERED: ISOVUE-370 200 ML INFUS..BTL ONE (13:40)
[2020-11-05] MEDS ORDERED: Heparin 1,000 UNITS/500 mL 500 ML ONE (13:40)
[2020-11-05] MEDS ORDERED: *HR* Heparin 10,000 UNIT/10 ML VIAL ONE (13:40)
[2020-11-05] MEDS ORDERED: Tirofiban 12.5 MG/250ML 0 MG/0 ML BAG ONE (13:40)
[2020-11-05] MEDS ORDERED: Lidocaine -MPF 1% 2 ML VIAL ONE (13:46)
[2020-11-05] MEDS ORDERED: *HR* FentaNYL (PF) 100 MCG/2 ML VIAL ONE (14:17)
[2020-11-05] MEDS ORDERED: *HR* Midazolam HCl 2 MG/2 ML VIAL ONE (14:17)
[2020-11-05 16:24] LABS: Basophils % 0.1 %; Eosinophils % 0.1 %; Hematocrit 44.9 % (37.5-50.1); Hemoglobin 13.9 g/dL (12.9-16.9); Immature Granulocytes % 0.5 % (0-4); Lymphocytes # 0.7 K/mcL (0.6-4.6); Lymphocytes % 5.3 %; Mean Corpuscular Hemoglobin 29.3 pg (28.0-33.3); Mean Corpuscular Volume 94.5 fL (83.0-100.0); Mean Platelet Volume 10.9 fL (9.4-12.4); Monocytes # 0.7 K/mcL (0.0-1.3); Monocytes % 5.3 %; Neutrophils # 11.7 K/mcL (1.6-8.9); Platelet Count 324 K/mcL (140-400); Red Blood Count 4.75 M/mcL (4.19-5.50); Red Cell Distribution Width 13.7 % (11.5-14.5); Segmented Neutrophils % 88.7 %; White Blood Count 13.1 K/mcL (4.3-11.1)
[2020-11-05 16:38] LABS: Calcium 9.2 mg/dL (8.6-10.3); Potassium 4.7 mEq/L (3.5-5.1)
[2020-11-05] MEDS: Ondansetron 4 MG/2 ML VIAL IVP PRN (17:52)
[2020-11-05] MEDS: 0.9 % Sodium Chloride 1,000 ML IVC SCH (17:52)
[2020-11-05] MEDS: *HR* HYDROmorphone (PF) 1 MG/ML SYRINGE IVP PRN ×3 (17:53→21:53)
[2020-11-05] MEDS: *HR* Amiodarone 200 MG TABLET PO SCH (19:47)
[2020-11-05] MEDS: Ranolazine 500 MG TAB.ER.12H PO SCH (19:47)
[2020-11-05] MEDS: Apixaban 5 MG TABLET PO SCH (19:47)
[2020-11-06] MEDS: *HR* HYDROmorphone (PF) 1 MG/ML SYRINGE IVP PRN ×3 (00:24→05:59)
[2020-11-06] MEDS: Melatonin 3 MG TABLET PO PRN (00:26)
[2020-11-06 01:37] LABS: Basophils % 0.2 %; Eosinophils # 0.1 K/mcL (0.0-0.6); Eosinophils % 0.4 %; Hematocrit 40.6 % (37.5-50.1); Hemoglobin 12.5 g/dL (12.9-16.9); Immature Granulocytes % 0.3 % (0-4); Lymphocytes # 1.8 K/mcL (0.6-4.6); Lymphocytes % 14.9 %; Mean Corpuscular HGB Conc 30.8 g/dL (31.6-35.5); Mean Corpuscular Hemoglobin 28.9 pg (28.0-33.3); Mean Platelet Volume 10.9 fL (9.4-12.4); Monocytes # 0.9 K/mcL (0.0-1.3); Monocytes % 7.4 %; Neutrophils # 9.5 K/mcL (1.6-8.9); Platelet Count 347 K/mcL (140-400); Red Blood Count 4.32 M/mcL (4.19-5.50); Red Cell Distribution Width 13.9 % (11.5-14.5); Segmented Neutrophils % 76.8 %; White Blood Count 12.3 K/mcL (4.3-11.1)
[2020-11-06 01:54] LABS: Calcium 8.9 mg/dL (8.6-10.3); Potassium 4.2 mEq/L (3.5-5.1)
[2020-11-06] MEDS: 0.9 % Sodium Chloride 1,000 ML IVC SCH (05:58)
[2020-11-06] MEDS: Ondansetron 4 MG/2 ML VIAL IVP PRN (05:59)
[2020-11-06] MEDS ORDERED: Perflutren Lipid Microsphere 1.3 ML in 0.9 % Sodium Chloride 8.7 ML IVP PRN (07:43)
[2020-11-06] MEDS ORDERED: *HR* OxyCODONE/APAP 5/325 TABLET PO PRN ×2 (07:44→10:23)
[2020-11-06 09:01] LABS: Albumin 3.9 g/dL (3.5-5.7); Albumin/Globulin Ratio 1.2 (1.1-2.2); Bilirubin,Direct 0.1 mg/dL (0.0-0.2); Bilirubin,Indirect 0.3 mg/dL (0.0-1.0); Bilirubin,Total 0.4 mg/dL (0.3-1.0); Globulin 3.3 g/dL (2.4-3.5); Total Protein 7.2 g/dL (6.4-8.9)
[2020-11-06] MEDS: Ranolazine 500 MG TAB.ER.12H PO SCH ×2 (09:26→19:45)
[2020-11-06] MEDS: *HR* Amiodarone 200 MG TABLET PO SCH ×2 (09:27→19:45)
[2020-11-06] MEDS: Apixaban 5 MG TABLET PO SCH ×2 (09:27→19:45)
[2020-11-06] MEDS ORDERED: 0.9 % Sodium Chloride 500 ML IVC SCH (10:36)
[2020-11-06] MEDS: *HR* OxyCODONE/APAP 5/325 TABLET PO PRN ×3 (13:14→21:39)
[2020-11-06] MEDS: Isosorbide MONOnitrate (24 HR) 60 MG TAB.ER.24H PO SCH (13:14)
[2020-11-06 13:38] LABS: Bilirubin,Urine Negative (Negative); Blood,Urine Negative (Negative); Clarity,Urine Clear (Clear); Color,Urine Yellow (Yellow); Glucose,Urine (UA) Normal (Normal); Ketones,Urine Negative (Negative); Leukocyte Esterase,Urine Negative (Negative); Nitrite,Urine Negative (Negative); PH,Urine 5.5 pH Units (5.0-8.0); Protein,Urine Trace mg/dL (Neg-Trace); Specific Gravity,Urine 1.027 (1.010-1.025); Urobilinogen,Urine Normal (Normal)
[2020-11-06 13:48] LABS: Amphetamine Screen,Urine Negative ng/mL (Cutoff=1000); Barbiturate Screen,Urine Negative ng/mL (Cutoff=200); Benzodiazepines Screen,Urine Negative ng/mL (Cutoff=200); Cannabinoid Screen,Urine Negative ng/mL (Cutoff = 50); Cocaine Screen,Urine Negative ng/mL (Cutoff= 300); Opiate Screen,Urine Positive ng/mL (Cutoff=300); Phencyclidine Screen,Urine Negative ng/mL (Cutoff=25)
[2020-11-06] MEDS ORDERED: *HR* Atropine Sulfate 1 MG/10 ML SYRINGE ONE (17:07)
[2020-11-06] MEDS: carvediloL 6.25 MG TABLET PO SCH (17:56)
[2020-11-07 01:23] LABS: Basophils % 0.2 %; Eosinophils # 0.1 K/mcL (0.0-0.6); Eosinophils % 1.2 %; Hematocrit 42.3 % (37.5-50.1); Hemoglobin 12.7 g/dL (12.9-16.9); Immature Granulocytes % 0.4 % (0-4); Lymphocytes # 1.1 K/mcL (0.6-4.6); Lymphocytes % 12.9 %; Mean Corpuscular Hemoglobin 28.7 pg (28.0-33.3); Mean Corpuscular Volume 95.7 fL (83.0-100.0); Mean Platelet Volume 11.3 fL (9.4-12.4); Monocytes # 0.7 K/mcL (0.0-1.3); Monocytes % 7.8 %; Neutrophils # 6.5 K/mcL (1.6-8.9); Platelet Count 282 K/mcL (140-400); Red Blood Count 4.42 M/mcL (4.19-5.50); Red Cell Distribution Width 13.9 % (11.5-14.5); Segmented Neutrophils % 77.5 %; White Blood Count 8.3 K/mcL (4.3-11.1)
[2020-11-07 01:39] LABS: Calcium 8.7 mg/dL (8.6-10.3); Magnesium 1.9 mg/dL (1.6-2.6); Potassium 4.3 mEq/L (3.5-5.1)
[2020-11-07] MEDS: *HR* OxyCODONE/APAP 5/325 TABLET PO PRN ×6 (01:41→22:55)
[2020-11-07] MEDS: Apixaban 5 MG TABLET PO SCH ×2 (07:57→20:37)
[2020-11-07] MEDS: Isosorbide MONOnitrate (24 HR) 60 MG TAB.ER.24H PO SCH (07:58)
[2020-11-07] MEDS: carvediloL 6.25 MG TABLET PO SCH ×2 (07:58→17:57)
[2020-11-07] MEDS: Ranolazine 500 MG TAB.ER.12H PO SCH ×2 (07:58→20:37)
[2020-11-07] MEDS: *HR* Amiodarone 200 MG TABLET PO SCH ×2 (07:58→20:37)
[2020-11-07] MEDS: lisinopriL 5 MG TABLET PO SCH (15:09)
[2020-11-07] MEDS: 0.9 % Sodium Chloride 1,000 ML IVC SCH (15:10)
[2020-11-08 01:08] LABS: BUN/Creatinine Ratio 21 (6-26); Blood Urea Nitrogen 28 mg/dL (6-20); Calcium 8.7 mg/dL (8.6-10.3); Carbon Dioxide 28 mEq/L (23-29); Chloride 99 mEq/L (98-107); Glucose 105 mg/dL (70-105); Osmolality,Calculated 288 (280-300); Sodium 136 mEq/L (136-145); eGFR For African Americans > 60 (> 60); eGFR For Non-African Americans 55 (> 60)
[2020-11-08] MEDS: *HR* OxyCODONE/APAP 5/325 TABLET PO PRN ×4 (02:58→15:58)
[2020-11-08] MEDS: Apixaban 5 MG TABLET PO SCH ×2 (07:53→20:06)
[2020-11-08] MEDS: carvediloL 6.25 MG TABLET PO SCH ×2 (07:54→15:58)
[2020-11-08] MEDS: lisinopriL 5 MG TABLET PO SCH (07:54)
[2020-11-08] MEDS: Ranolazine 500 MG TAB.ER.12H PO SCH ×2 (07:54→20:05)
[2020-11-08] MEDS: 0.9 % Sodium Chloride 1,000 ML IVC SCH (07:55)
[2020-11-08] MEDS: *HR* Amiodarone 200 MG TABLET PO SCH ×2 (07:55→20:06)
[2020-11-08] MEDS: Melatonin 3 MG TABLET PO PRN (20:05)
[2020-11-08] MEDS: Isosorbide MONOnitrate (24 HR) 30 MG TAB.ER.24H PO SCH (20:06)
[2020-11-09] MEDS: *HR* OxyCODONE/APAP 5/325 TABLET PO PRN ×5 (00:44→20:53)
[2020-11-09] MEDS: carvediloL 6.25 MG TABLET PO SCH ×2 (08:41→17:00)
[2020-11-09] MEDS: Apixaban 5 MG TABLET PO SCH ×2 (08:41→20:47)
[2020-11-09] MEDS: *HR* Amiodarone 200 MG TABLET PO SCH ×2 (08:41→20:47)
[2020-11-09] MEDS: lisinopriL 5 MG TABLET PO SCH (08:42)
[2020-11-09] MEDS: Ranolazine 500 MG TAB.ER.12H PO SCH ×2 (08:42→20:47)
[2020-11-09 11:45] LABS: Calcium 8.7 mg/dL (8.6-10.3); Potassium 4.7 mEq/L (3.5-5.1)
[2020-11-09] MEDS: Isosorbide MONOnitrate (24 HR) 30 MG TAB.ER.24H PO SCH (20:47)
[2020-11-09] MEDS: Melatonin 3 MG TABLET PO PRN (20:53)
[2020-11-10] MEDS: *HR* OxyCODONE/APAP 5/325 TABLET PO PRN ×4 (02:55→21:11)
[2020-11-10 05:22] LABS: BUN/Creatinine Ratio 15 (6-26); Blood Urea Nitrogen 19 mg/dL (6-20); Calcium 8.6 mg/dL (8.6-10.3); Carbon Dioxide 30 mEq/L (23-29); Chloride 97 mEq/L (98-107); Glucose 99 mg/dL (70-105); Osmolality,Calculated 282 (280-300); Potassium 4.4 mEq/L (3.5-5.1); Sodium 135 mEq/L (136-145); eGFR For African Americans > 60 (> 60); eGFR For Non-African Americans > 60 (> 60)
[2020-11-10] MEDS: lisinopriL 5 MG TABLET PO SCH (08:44)
[2020-11-10] MEDS: carvediloL 6.25 MG TABLET PO SCH (08:45)
[2020-11-10] MEDS: *HR* Amiodarone 200 MG TABLET PO SCH ×2 (08:45→21:10)
[2020-11-10] MEDS: Ranolazine 500 MG TAB.ER.12H PO SCH ×2 (08:45→21:10)
[2020-11-10] MEDS: Apixaban 5 MG TABLET PO SCH ×2 (08:45→21:10)
[2020-11-10] MEDS: Isosorbide MONOnitrate (24 HR) 30 MG TAB.ER.24H PO SCH (21:10)
[2020-11-10] MEDS: Melatonin 3 MG TABLET PO PRN (21:11)
[2020-11-11] MEDS: *HR* OxyCODONE/APAP 5/325 TABLET PO PRN ×4 (03:42→22:18)
[2020-11-11] MEDS ORDERED: Metoprolol XL (24 HR) Succ 25 MG TAB.ER.24H PO SCH (09:00)
[2020-11-11] MEDS ORDERED: Ringers Solution, Lactated 500 ML IVC ONE (09:31)
[2020-11-11] MEDS: Ranolazine 500 MG TAB.ER.12H PO SCH ×2 (09:53→21:04)
[2020-11-11] MEDS: lisinopriL 5 MG TABLET PO SCH (09:53)
[2020-11-11] MEDS: *HR* Amiodarone 200 MG TABLET PO SCH ×2 (09:54→21:04)
[2020-11-11] MEDS: Apixaban 5 MG TABLET PO SCH ×2 (09:54→21:04)
[2020-11-12] MEDS: Melatonin 3 MG TABLET PO PRN (00:44)
[2020-11-12] MEDS: *HR* OxyCODONE/APAP 5/325 TABLET PO PRN ×2 (04:09→11:16)
[2020-11-12] MEDS: *HR* Amiodarone 200 MG TABLET PO SCH (08:32)
[2020-11-12] MEDS: Ranolazine 500 MG TAB.ER.12H PO SCH (08:32)
[2020-11-12] MEDS: lisinopriL 5 MG TABLET PO SCH (08:33)
[2020-11-12] MEDS: Apixaban 5 MG TABLET PO SCH (08:33)
[2020-11-12 11:27] VITALS: BP 148/83
== END 2020-11-12 12:36 | disposition home or self-care (01) | DRG 192 ==
LOC: 2NNU 13:22 → EMEROOARM 13:22 → SUATTDRO 15:18 → 2NNU 15:19 → SUATTDRO 11-07 17:44 → 2ANU 11-09 14:01
PROVIDERS: ADMIT Internal Medicine; ATTEND Internal Medicine

== ENCOUNTER 2020-11-30 10:44 | Observation (INO) ==
[2020-11-30] MEDS ORDERED: Morphine Sulfate 2 MG/ML SYRINGE IVP ONE (10:49)
[2020-11-30] MEDS ORDERED: *HR* Labetalol 20 MG/4 ML SYRINGE IVP ONE (10:49)
[2020-11-30] MEDS ORDERED: Ondansetron 4 MG/2 ML VIAL IVP ONE (10:50)
[2020-11-30 11:05] LABS: Basophils % 0.4 %; Eosinophils # 0.2 K/mcL (0.0-0.6); Eosinophils % 1.5 %; Hematocrit 43.5 % (37.5-50.1); Hemoglobin 14.1 g/dL (12.9-16.9); Immature Granulocytes % 0.3 % (0-4); Lymphocytes # 1.1 K/mcL (0.6-4.6); Lymphocytes % 10.3 %; Mean Corpuscular HGB Conc 32.4 g/dL (31.6-35.5); Mean Corpuscular Hemoglobin 30.1 pg (28.0-33.3); Mean Corpuscular Volume 92.9 fL (83.0-100.0); Mean Platelet Volume 10.4 fL (9.4-12.4); Monocytes # 0.7 K/mcL (0.0-1.3); Monocytes % 6.1 %; Neutrophils # 8.8 K/mcL (1.6-8.9); Platelet Count 339 K/mcL (140-400); Red Blood Count 4.68 M/mcL (4.19-5.50); Red Cell Distribution Width 14.6 % (11.5-14.5); Segmented Neutrophils % 81.4 %; White Blood Count 10.8 K/mcL (4.3-11.1)
[2020-11-30 11:26] LABS: Calcium 9.3 mg/dL (8.6-10.3); Potassium 4.1 mEq/L (3.5-5.1)
[2020-11-30 11:30] LABS: Troponin I 0.04 ng/mL (< 0.04)
[2020-11-30] MEDS ORDERED: *HR* Heparin 5,000 UNIT/ML VIAL IVP ONE (11:38)
[2020-11-30] MEDS ORDERED: *HR* Heparin 5,000 UNIT/ML VIAL IVP PRN ×2 (11:38)
[2020-11-30] MEDS ORDERED: Heparin 25,000UNIT/250ML 1/2NS 25,000 UNIT/250 ML IV.SOLN IVC SCH (11:45)
[2020-11-30] MEDS ORDERED: Naloxone 0.4 MG/ML INJ IVP PRN (12:01)
[2020-11-30] MEDS ORDERED: Acetaminophen 325 MG TABLET PO PRN (12:01)
[2020-11-30 12:03] LABS: Heparin anti-factor XA UFH 0.89 IU/mL (0.30-0.70); INR 1.4; Prothrombin Time 15.8 Seconds (9.4-12.1)
[2020-11-30 12:05] LABS: Activated Partial Thrombo Time 35.8 Seconds (26.0-36.0)
[2020-11-30] MEDS: Heparin 25,000UNIT/250ML 1/2NS 25,000 UNIT/250 ML IV.SOLN IVC SCH (13:03)
[2020-11-30] MEDS: Ondansetron 4 MG/2 ML VIAL IVP PRN (15:39)
[2020-11-30] MEDS ORDERED: *HR* LORazepam 2 MG/ML VIAL IVP PRN (15:44)
[2020-11-30] MEDS ORDERED: *HR* HYDROmorphone (PF) 1 MG/ML SYRINGE IVP ONE (15:44)
[2020-11-30] MEDS: lisinopriL 20 MG TABLET PO SCH (16:07)
[2020-11-30] MEDS: amLODIPine 5 MG TABLET PO SCH (16:07)
[2020-11-30] MEDS: *HR* OxyCODONE Immed Rel 5 MG TABLET PO PRN ×2 (17:56→23:34)
[2020-11-30] MEDS: *HR* HYDROcodone/Acet 5/325 mg TABLET PO PRN (20:02)
[2020-12-01] MEDS ORDERED: Morphine Sulfate 2 MG/ML SYRINGE IVP ONE (01:00)
[2020-12-01 05:46] LABS: Basophils # 0.1 K/mcL (0.0-0.2); Basophils % 0.5 %; Eosinophils # 0.2 K/mcL (0.0-0.6); Eosinophils % 1.4 %; Hematocrit 39.2 % (37.5-50.1); Immature Granulocytes % 0.4 % (0-4); Lymphocytes # 2.7 K/mcL (0.6-4.6); Lymphocytes % 22.9 %; Mean Corpuscular HGB Conc 31.4 g/dL (31.6-35.5); Mean Corpuscular Hemoglobin 29.3 pg (28.0-33.3); Mean Corpuscular Volume 93.3 fL (83.0-100.0); Mean Platelet Volume 10.9 fL (9.4-12.4); Monocytes % 8.9 %; Neutrophils # 7.7 K/mcL (1.6-8.9); Platelet Count 345 K/mcL (140-400); Red Cell Distribution Width 14.9 % (11.5-14.5); Segmented Neutrophils % 65.9 %; White Blood Count 11.6 K/mcL (4.3-11.1)
[2020-12-01 05:53] LABS: Hemoglobin 12.3 g/dL (12.9-16.9)
[2020-12-01 06:10] LABS: Calcium 8.8 mg/dL (8.6-10.3); Chol/HDL Ratio 8.1 (0-4.9); Potassium 3.9 mEq/L (3.5-5.1)
[2020-12-01] MEDS: *HR* OxyCODONE Immed Rel 5 MG TABLET PO PRN ×2 (06:18→11:10)
[2020-12-01] MEDS: lisinopriL 20 MG TABLET PO SCH (07:40)
[2020-12-01] MEDS: *HR* HYDROcodone/Acet 5/325 mg TABLET PO PRN ×2 (07:40→14:32)
[2020-12-01] MEDS: amLODIPine 5 MG TABLET PO SCH (07:40)
[2020-12-01] MEDS ORDERED: Aspirin Enteric Coated 81 MG Tablet PO SCH (09:00)
[2020-12-01] MEDS ORDERED: *HR* OxyCODONE Immed Rel 5 MG TABLET PO PRN (11:07)
[2020-12-01] MEDS: Heparin 25,000UNIT/250ML 1/2NS 25,000 UNIT/250 ML IV.SOLN IVC SCH (11:11)
[2020-12-01] MEDS ORDERED: Isosorbide MONOnitrate (24 HR) 30 MG TAB.ER.24H PO SCH (12:30)
[2020-12-01] MEDS: Ondansetron 4 MG/2 ML VIAL IVP PRN (12:32)
[2020-12-01 12:35] LABS: Estimated Average Glucose 137 mg/dl; Hemoglobin A1C 6.4 %
[2020-12-01 16:19] VITALS: BP 147/95
[2020-12-01] MEDS ORDERED: carvediloL 6.25 MG TABLET PO SCH (17:00)
[2020-12-01] MEDS ORDERED: carvediloL 25 MG TABLET PO SCH (17:00)
[2020-12-01] MEDS ORDERED: Ranolazine 500 MG TAB.ER.12H PO SCH (21:00)
[2020-12-01] MEDS ORDERED: Apixaban 5 MG TABLET PO SCH (21:00)
== END 2020-12-01 18:40 | disposition home or self-care (01) ==
LOC: 3BNU 10:44 → EMEROOARM 10:44 → SUATTDRO 13:12 → 3BNU 14:30 → 2NNU 15:22
PROVIDERS: ADMIT Internal Medicine; ATTEND Internal Medicine